=== PATIENT | male | born 1980 | race African-American/Black ===

== ENCOUNTER 2016-05-07 00:02 | Emergency (ER) | payer OTHER ==
[~2016-05-07] VITALS: Ht 172.7 cm; Wt 74.8 kg
[~2016-05-07 00:02] MED LIST: AMOXIL500 MG PO; HYDROXYZINE HCL50 M1 PO; MOTRIN600 MG PO; MOTRIN800 MG PO; ZOFRAN4 M2 SL
[2016-05-07 00:09] VITALS: BP 156/100
--- NOTE | 2016-05-07 00:14 | ED GENERAL ADULT ---
History of Present Illness General Chief Complaint: General Adult Stated Complaint: PER PT "BEEN OFF MY MEDS X'S 2 MTHS" C/O ANXIETY Source: patient, old records Exam Limitations: no limitations Vital Signs & Intake/Output Vital Signs & Intake/Output Vital Signs Date Time Temp Pulse Resp B/P Pulse O2 O2 Flow FiO2 Ox Delivery Rate 05/07 0009 96.2 62 18 156/100 96 Allergies Coded Allergies: No Known Drug Allergies (UNKNOWN 07/24/15) Reconcile Medications Hydroxyzine HCl 50 MG TABLET 1 TAB PO TID PRN anxiety Hydroxyzine HCl 50 MG TABLET 1 TAB PO TID PRN ANXIETY Ondansetron HCl (Zofran) 4 MG TABLET 1 ODT SL TID PRN NAUSEA Triage Note: PT TO TRIAGE C/O INCREASING ANXIETY. PT STATES HE HAS BEEN OFF OF HIM MEDICATION FOR 2-3 MONTHS. PT STATES HE CANNOT SLEEP, WANTED TO COME EARLIER BUT GIRLFRIEND TOLD HIM TO WAIT. Triage Nurses Notes Reviewed? yes HPI: Patient presents requesting refill for his hydroxyzine. Patient states that he ran out approximately 2 weeks ago and his primary care physician will not be filled until she sees him. Patient states his anxiety is getting worse and he hasn't been able to sleep for the past 2 days. Patient states he itches pacing his house. Patient denies any suicidal or homicidal ideations. Patient denies any nausea or vomiting. There's no chest pain or shortness of breath. Patient denies any hallucinations. Past History Travel History Traveled to [place] past 21 day No Medical History Any Pertinent Medical History? see below for history Neurological: NONE EENT: NONE Cardiovascular: NONE Respiratory: NONE Gastrointestinal: NONE Hepatic: NONE Renal: NONE Musculoskeletal: NONE Psychiatric: anxiety Endocrine: NONE Blood Disorders: NONE Cancer(s): NONE Surgical History Surgical History: non-contributory, N Psychosocial History What is your primary language Ukrainian Tobacco Use: Current Not Daily Daily Tobacco Use Amount/Type: => 5 Cigarettes daily ETOH Use: occasional use Illicit Drug Use: marijuana Family History Hx Contributory? No Review of Systems Review of Systems Constitutional: Reports: no symptoms. EENTM: Reports: no symptoms. Respiratory: Reports: no symptoms. Cardiovascular: Reports: no symptoms. GI: Reports: no symptoms. Genitourinary: Reports: no symptoms. Musculoskeletal: Reports: no symptoms. Skin: Reports: no symptoms. Neurological/Psychological: Reports: see HPI, anxiety. Hematologic/Endocrine: Reports: no symptoms. Immunologic/Allergic: Reports: no symptoms. All Other Systems: Reviewed and Negative Physical Exam Physical Exam General Appearance: well developed/nourished, alert, awake, anxious, mild distress Head: atraumatic, normal appearance Eyes: Bilateral: PERRL, EOMI. Ears, Nose, Throat: normal pharynx, normal ENT inspection, hearing grossly normal Neck: normal inspection, supple, full range of motion Respiratory: normal breath sounds, chest non-tender, no respiratory distress, lungs clear Cardiovascular: regular rate/rhythm, normal peripheral pulses Extremities: normal inspection, normal capillary refill, normal range of motion, no edema Neurologic/Psych: no motor/sensory deficits, awake, alert, oriented x 3, normal gait, normal mood/affect Skin: intact, normal color, warm/dry Core Measures ACS in differential dx? No CVA/TIA Diagnosis: No Severe Sepsis Present: No Septic Shock Present: No Progress Differential Diagnoses I considered the following diagnoses in my evaluation of the patient: [Anxiety, med refill] Plan of Care: Refill medicine Initial ED EKG: none Departure Departure Disposition: HOME OR SELF CARE Condition: Stable Clinical Impression Primary Impression: Anxiety Referrals: HAYDEN BORGES MD (PCP/Family) Additional Instructions: FOLLOW UP WITH DR. BORGES RETURN IF SYMPTOMS WORSEN OR FOR ANY CONCERNS Departure Forms: Customer Survey General Discharge Information Prescriptions: Current Visit Scripts Hydroxyzine HCl 1 TAB PO TID PRN ANXIETY #30 TAB Critical Care Note Critical Care Note Critical Care Time: non-applicable
[2016-05-07] MEDS ORDERED: HYDROXYZINE HCL50 M1 PO (00:17)
== END 2016-05-07 00:32 ==
LOC: ERH 00:02
DX: F41.9 Anxiety disorder, unspecified (principal)
CPT/HCPCS: 99281

== ENCOUNTER 2016-07-20 23:37 | Emergency (ER) | payer OTHER ==
[~2016-07-20] VITALS: Ht 170.2 cm; Wt 78.5 kg
[2016-07-21 00:11] VITALS: BP 138/68
--- NOTE | 2016-07-21 00:58 | ED UPPER/LOWER EXTREMITY COMPL ---
History of Present Illness General Chief Complaint: Hand or Wrist Injury Stated Complaint: " RT HAND SWELLING, WORK RELATED" Source: patient Exam Limitations: no limitations Vital Signs & Intake/Output Vital Signs & Intake/Output Vital Signs Date Time Temp Pulse Resp B/P B/P Pulse O2 O2 Flow FiO2 Mean Ox Delivery Rate 07/21 0011 98.0 61 18 138/68 96 Room Air Allergies Coded Allergies: No Known Drug Allergies (UNKNOWN 07/21/16) Reconcile Medications Hydroxyzine HCl 50 MG TABLET 1 TAB PO TID PRN ANXIETY Ibuprofen 800 MG TABLET 1 TAB PO TID PRN pain Oxycodone HCl/Acetaminophen (Percocet 5-325 MG Tablet) 5 MG-325 MG TABLET 1 TAB PO 4XDP PRN PAIN six...[id number] Triage Note: TRIAGE: PATIENT TO ER FROM HOME W/ R HAND SWELLING, REPORTS "SMASHED IT ON THURSDAY, BEEN TAKING NAPROXEN AND TRAMADOL W/O RELIEF." DENIES HAVING ANY XRAYS DONE. 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 yes Onset: Abrupt Duration: day(s):, waxing and waning Pain/Injury Location: Right: Hand. Method of Injury: direct blow Modifying Factors: Improves With: rest. Worsens With: movement. Associated Symptoms: swelling HPI: 35yo in prior good health with right hand/wrist pain after injury at work carrying a deep freezer 3 days ago. "I banged it and my hand got crushed." He notes swelling and decreased range of motion. He shares he went to an urgent care center yesterday was given ultram and naprosyn without effect. Past History Travel History Traveled to [place] past 21 day No Medical History Any Pertinent Medical History? see below for history Neurological: NONE EENT: NONE Cardiovascular: NONE Respiratory: NONE Gastrointestinal: NONE Hepatic: NONE Renal: NONE Musculoskeletal: NONE Psychiatric: anxiety Endocrine: NONE Blood Disorders: NONE Cancer(s): NONE [employer]IONS/Reproductive: NONE Surgical History Surgical History: non-contributory, N Psychosocial History What is your primary language Yakut Tobacco Use: Refused to answer Family History Hx Contributory? No Review of Systems Review of Systems Constitutional: Reports: no symptoms. EENTM: Reports: no symptoms. Respiratory: Reports: no symptoms. Cardiovascular: Reports: no symptoms. Gastrointestinal/Abdominal: Reports: no symptoms. Genitourinary: Reports: no symptoms. Musculoskeletal: Reports: no symptoms. Skin: Reports: no symptoms. Neurological/Psychological: Reports: no symptoms. Hematologic/Endocrine: Reports: no symptoms. Immunological: Reports: no symptoms. All Other Systems: Reviewed and Negative Physical Exam Physical Exam General Appearance: well developed/nourished, mild distress Head: atraumatic Eyes: Bilateral: PERRL, EOMI. Ears, Nose, Throat: normal pharynx, normal ENT inspection, hearing grossly normal Neck: normal inspection, supple Cardiovascular/Respiratory: regular rate/rhythm Back: normal inspection Hand Right: swelling, diffuse tenderness in metacarpal region, with focal tenderness in proximal metacarpals. diffuse swelling, ROM is normal, but compromised by pain. 2+ distal pulse, light touch intact. Skin: intact, normal color, warm/dry Lymphatic: no anterior cervical tamy Progress Differential Diagnosis: contusion, fracture, sprain Plan of Care: Current Medications Sig/Solomon Start time Last Medication Dose Stop Time Status Admin Ibuprofen 800 MG ONCE ONE 07/21 144 UNVr (Motrin) 07/21 145 Diagnostic Imaging: Viewed by Me: Radiology Read. Discussed w/RAD: Radiology Read. Radiology Impression: r hand/wrist - non displaced fx of right metacarpal... full report below Comments: PATIENT: JOSE STREETER PRESENT AGE: 35 PATIENT ACCOUNT NO: [id number] : 78 LOCATION: [facility] ORDERING PHYSICIAN: MISHA ORO MD SERVICE DATE: 07/21/16 EXAM TYPE: RAD - XRY-HAND, RIGHT; XRY-WRIST COMPLETE-RIGHT EXAMINATION: XR WRIST, RIGHT XR HAND, RIGHT CLINICAL INFORMATION: Trauma. Pain and swelling COMPARISON: None TECHNIQUE: 3 views of the right hand which include the wrist. Additional scaphoid view of the right wrist. FINDINGS: Nondisplaced fracture at the base of the third metacarpal.. Alignment is anatomic. Joint spaces are maintained. Diffuse soft tissue swelling. The carpal rows are aligned. No focal fracture at the wrist. IMPRESSION: Nondisplaced fracture at the base of the third metacarpal. DICTATED BY: RAINER ROMANO,JUAN RAMON DATE/TIME DICTATED:07/21/16128 OPERATIONS STAFF SPECIALIST SECURITY:GUY DATE/TIME TRANSCRIBED:07/21/16128 CONFIDENTIAL, DO NOT COPY WITHOUT APPROPRIATE AUTHORIZATION. <Electronically signed in Other Vendor System> SIGNED BY: RAINER ROMANO,JUAN RAMON 07/21 Departure Departure Disposition: HOME OR SELF CARE Condition: Stable Clinical Impression Primary Impression: Closed fracture of metacarpal of right hand Referrals: HAYDEN BORGES MD (PCP/Family) Departure Forms: Customer Survey Employee Industrial [employer] General Discharge Information Prescriptions: Current Visit Scripts Oxycodone HCl/Acetaminophen (Percocet 5-325 MG Tablet) 1 TAB PO 4XDP PRN PAIN #6 TAB six...[id number] Ibuprofen 1 TAB PO TID PRN pain #60 TAB Ref 1 Procedures Splinting Location: right hand Manual Alignment Performed: No Hand-Made Type: orthoglass Splint: MCP splint on right hand Splint Applied By: splint applied by me Pre-Proc Neuro Vasc Exam: normal Post-Proc Neuro Vasc Exam: normal Progress: pt referred to ortho
--- NOTE | 2016-07-21 01:34 | RADIOLOGY REPORT ---
EXAMINATION: XR WRIST, RIGHT XR HAND, RIGHT CLINICAL INFORMATION: Trauma. Pain and swelling COMPARISON: None TECHNIQUE: 3 views of the right hand which include the wrist. Additional scaphoid view of the right wrist. FINDINGS: Nondisplaced fracture at the base of the third metacarpal.. Alignment is anatomic. Joint spaces are maintained. Diffuse soft tissue swelling. The carpal rows are aligned. No focal fracture at the wrist. IMPRESSION: Nondisplaced fracture at the base of the third metacarpal.
[2016-07-21] MEDS ORDERED: IBUPROFEN800 M1 PO (01:44)
[2016-07-21] MEDS ORDERED: PERCOCET 5-3251 EACH PO (01:44)
== END 2016-07-21 01:59 ==
LOC: ERH 23:37
DX: S62.342A Nondisplaced fracture of base of third metacarpal bone, right hand, initial encounter for closed fracture (principal); W23.0XXA Caught, crushed, jammed, or pinched between moving objects, initial encounter; Y92.9 Unspecified place or not applicable; Y93.9 Activity, unspecified
CPT/HCPCS: 73110-RT; 73130-RT